=== PATIENT | female | born 1965 | race African-American/Black ===

== ENCOUNTER 2018-08-13 09:09 | Day surgery (SDC) | payer BC ==
[2018-08-10 12:34] VITALS: BMI 51.7
[2018-08-13] MEDS ORDERED: PROPOFOL 200 MG/20 ML VIAL ONE (13:59)
--- NOTE | 2018-08-13 14:29 | OP ---
DATE OF PROCEDURE: 08/13/2018 PROCEDURE PERFORMED: Colonoscopy. PREPROCEDURE DIAGNOSIS: Prior history of colon polyps. POSTPROCEDURE DIAGNOSES: 1. Melanosis coli. 2. No polyps seen. RECOMMENDATION: Repeat colonoscopy in 5 years. ANESTHESIA: TIVA. DESCRIPTION OF PROCEDURE: The patient was informed of the risks, benefits, and possible complication of endoscopy including perforation, bleeding risk, reaction to medication and aspiration, and informed consent was obtained. The patient was brought to the Endoscopy Suite, where she was sedated in a gradual fashion. Once she was comfortable, rectal exam was performed. The endoscope was then advanced through the anal canal through the colon to the cecum, which was identified by ileocecal valve and appendiceal orifice. The scope was then slowly removed. Good visualization of mucosa. There was no masses, lesions, AV malformations, or polyps seen. Retroflexed views revealed small internal hemorrhoids. The scope was removed. The patient tolerated the procedure well. Job ID: [id number]
== END 2018-08-13 13:30 | disposition home or self-care (01) ==
LOC: SDC 09:09
PROVIDERS: ATTEND Internal Medicine Gastroenterology
PROC: 0DJD8ZZ Inspection of Lower Intestinal Tract, Via Natural or Artificial Opening Endoscopic (ICD-10-PCS; principal; 2018-08-13)
DX: Z12.11 Encounter for screening for malignant neoplasm of colon (principal); I10 Essential (primary) hypertension; K21.9 Gastro-esophageal reflux disease without esophagitis; M19.90 Unspecified osteoarthritis, unspecified site; Z98.51 Tubal ligation status; Z80.0 Family history of malignant neoplasm of digestive organs; Z86.010 Personal history of colon polyps; Z79.899 Other long term (current) drug therapy; Z98.890 Other specified postprocedural states
CPT/HCPCS: J2704

== ENCOUNTER 2019-03-06 21:44 | Emergency (ER) | payer BC ==
--- NOTE | 2019-03-06 23:25 | RAD ---
Chest AP view INDICATION: Heart fluttering with dizziness and shortness of breath COMPARISON: January 06, 2015 FINDINGS: Lungs:The lungs are clear Cardiac silhouette:Stable mild cardiomegaly Pulmonary vasculature:Normal Pleural spaces:No pleural effusion or pneumothorax is demonstrated. Upper abdomen:No abnormality seen. Osseous structures: No acute osseous abnormality. Additional findings:None. IMPRESSION: No acute cardiopulmonary abnormality.
[2019-03-06 23:57] LABS: #Basophils 0.1 thou/uL (0.0-0.2); #Eosinphils 0.5 thou/uL (0.0-0.7); #Lymphocytes 1.7 thou/uL (1.20-3.40); #Monocytes 0.7 thou/uL (0.11-0.59); #Neutrophils 6.2 thou/uL (1.40-6.50); %Basophils 0.9 % (0.0-1.0); %Eosinophils 5.2 % (0.0-10.0); %Lymphocytes 18.8 % (21.0-51.0); %Monocytes 7.1 % (0.0-10.0); Hemoglobin 12.1 g/dL (12.0-16.0); Mean Corpuscular HGB CONC 32.4 g/dL (32.0-36.0); Mean Corpuscular Hemoglobin 29.4 pg (27.0-31.0); Mean Corpuscular Volume 90.6 fL (78.0-98.0); Mean Platelet Volume 6.9 fL (7.4-10.4); Platelet Count 346 thou/uL (130-400); RBC Distribution Width 12.1 % (11.5-14.5); Red Blood Cell (RBC) Count 4.13 mill/uL (4.20-5.40); White Blood Cell (WBC) Count 9.1 thou/uL (4.8-10.8)
[2019-03-07 00:17] LABS: ALT (SGPT) 14 U/L (8-55); AST (SGOT) 13 U/L (5-34); Albumin 3.7 g/dL (3.5-5.0); Alkaline Phosphatase 97 U/L (40-150); Anion Gap 15 mmol/L (10-20); BUN (Urea Nitrogen) 17 mg/dL (9.8-20.1); Bilirubin, Total 0.3 mg/dL (0.2-1.2); CK (CPK) 62 U/L (29-168); Calc. Creatinine Clearance 0 mL/min (70-130); Calcium 9.3 mg/dL (7.8-10.44); Carbon Dioxide 22 mmol/L (22-29); Chloride 107 mmol/L (98-107); Estimated GFR-MDRD Greater than 90; Globulin 3.3 g/dL (2.4-3.5); Glucose 102 mg/dL (70-105); Lipase 31 U/L (8-78); Potassium 4.1 mmol/L (3.5-5.1); Sodium 140 mmol/L (136-145)
[2019-03-07] MEDS ORDERED: Acetaminophen 500 MG TAB ONE (02:20)
--- NOTE | 2019-03-07 07:54 | ULT ---
DOPPLER VENOUS ULTRASOUND OF THE LEFT LOWER EXTREMITY: INDICATION: Left lower extremity pain and edema. TECHNIQUE: Garcia scale, color Doppler, and vascular duplex with spectral analysis was performed of the deep venou s structures of both lower extremities. The common femoral vein, superficial femoral vein, popliteal vein, posterior tibial vein, proximal greater saphenous, and proximal profunda veins were assessed bi laterally. FINDINGS: There is normal compression, flow, and augmentation seen within the deep venous structures of the lef t lower extremity. There subcutaneous edema seen along the lateral aspect of the left ankle. IMPRESSION: 1. No evidence of deep vein thrombosis in the left lower extremity 2. Soft tissue swelling along the lateral aspect of the left ankle. POS: BH
--- NOTE | 2019-03-09 14:32 | EKG ---
Test Reason : Blood Pressure : / mmHG Vent. Rate : 066 BPM Atrial Rate : 066 BPM P-R Int : 156 ms QRS Dur : 090 ms QT Int : 392 ms P-R-T Axes : 016 -11 -06 degrees QTc Int : 410 ms Normal sinus rhythm Normal ECG Confirmed by GALLO ROA ([id number]), editorial assistant BEVERLY ELY ([id number]) on 03/09/2019 2:32:39 PM Referred By: Confirmed By:GALLO ROA
== END 2019-03-07 02:37 | disposition home or self-care (01) ==
LOC: ERS 21:44
DX: M79.605 Pain in left leg (principal); R00.2 Palpitations; R51 Headache; I10 Essential (primary) hypertension; J45.909 Unspecified asthma, uncomplicated; K21.9 Gastro-esophageal reflux disease without esophagitis; Z79.899 Other long term (current) drug therapy
CPT/HCPCS: 36415; 71045; 80053; 82550; 83690; 83880; 84484; 85025; 93005

== ENCOUNTER 2020-10-21 14:54 | Outpatient (CLI) | payer BC | END 2020-10-21 14:55 | disposition home or self-care (01) | LOC: DTY/OP 14:54 | PROVIDERS: ATTEND Surgery | DX: I10 Essential (primary) hypertension (principal) | CPT/HCPCS: 97802 ==

== ENCOUNTER 2021-01-06 11:15 | Inpatient (IN) | payer BC ==
[2021-01-11] MEDS ORDERED: cefOXitin Sodium/Dextrose 2 GM/50 ML BAG ONE (07:30)
[2021-01-11] MEDS ORDERED: Scopolamine 1.5 mg/72 hour Patch ONE (07:30)
[2021-01-11] MEDS ORDERED: Fentanyl 250 MCG/5 ML VIAL ONE (11:55)
[2021-01-11] MEDS ORDERED: Dextrose 5% in Water 1,000 ML IV PRN (12:12)
[2021-01-11] MEDS ORDERED: Hydrocodone-Acetamin 15 ML UDCUP PO PRN (12:12)
[2021-01-11] MEDS ORDERED: Morphine 2 MG/ML VIAL SLOW IVP PRN (12:12)
[2021-01-11] MEDS ORDERED: Dextrose 50% Abboject 50 ML SYRINGE SLOW IVP PRN (12:12)
[2021-01-11] MEDS ORDERED: diphenhydrAMINE 50 MG/ML VIAL IVP PRN (12:12)
[2021-01-11] MEDS ORDERED: hydrALAZINE 20 MG/ML VIAL SLOW IVP PRN (12:12)
[2021-01-11] MEDS ORDERED: Promethazine HCl 25 MG/ML VIAL IM PRN ×3 (12:12→17:15)
[2021-01-11] MEDS ORDERED: Ondansetron PF 4 MG/2 ML Vial IVP PRN (12:12)
[2021-01-11] MEDS ORDERED: ALBUTEROL SULFATE 90 MCG PO PRN (12:14)
[2021-01-11] MEDS ORDERED: Lidocaine 1% w/Epinephrine 1:100K 20 ML VIAL ONE (12:16)
[2021-01-11] MEDS ORDERED: Bupivacaine 0.25% HCL 30 ML VIAL ONE (12:16)
[2021-01-11] MEDS ORDERED: PROPOFOL 200 MG/20 ML VIAL ONE (12:17)
[2021-01-11] MEDS ORDERED: Rocuronium Bromide 10 MG/ML (10ML VIAL) ONE (12:17)
[2021-01-11] MEDS ORDERED: Ketorolac Tromethamine 30 MG/ML VIAL ONE (12:17)
[2021-01-11] MEDS ORDERED: PHENYLEPHRINE-NS 100 MCG/ML 10 ML SYRINGE ONE (12:17)
[2021-01-11] MEDS ORDERED: Lidocaine 1% PF 5 ML VIAL ONE (12:17)
[2021-01-11] MEDS ORDERED: Dexamethasone 20 MG/5 ML VIAL ONE (12:17)
[2021-01-11] MEDS ORDERED: Ondansetron PF 4 MG/2 ML Vial ONE (12:17)
[2021-01-11] MEDS ORDERED: Promethazine HCl 25 MG/ML VIAL ONE (14:30)
[2021-01-11] MEDS ORDERED: Fentanyl 100 MCG/2 ML VIAL ONE ×3 (14:41→16:59)
[2021-01-11] MEDS ORDERED: Promethazine HCl 25 MG/ML VIAL IVPB PRN (14:46)
[2021-01-11] MEDS ORDERED: Ondansetron HCl/PF 4 MG/2 ML Vial IVP PRN (14:46)
[2021-01-11] MEDS ORDERED: Meperidine HCl/PF 25 MG/ML VIAL SLOW IVP PRN (14:46)
[2021-01-11 17:11] LABS: Troponin I Less than 0.010 ng/mL (< 0.028)
[2021-01-11] MEDS ORDERED: diphenhydrAMINE 50 MG/ML VIAL IM/IV PRN (17:15)
[2021-01-11] MEDS ORDERED: diphenhydrAMINE 25 MG CAP PO PRN (17:15)
[2021-01-11] MEDS ORDERED: Zolpidem Tartrate 5 MG TAB PO PRN (17:15)
[2021-01-11] MEDS ORDERED: Naloxone HCl 0.4 mg/ml Vial IV PRN (17:15)
[2021-01-11] MEDS ORDERED: HYDROmorphone 10 MG in Sodium Chloride 0.9% 95 ML IVPB PRN (17:15)
[2021-01-11 18:53] VITALS: BMI 55.9
[2021-01-11] MEDS: Ondansetron PF 4 MG/2 ML Vial IVP PRN (19:45)
[2021-01-11] MEDS: Ketorolac Tromethamine 30 MG/ML VIAL IVP SCH (19:45)
[2021-01-11] MEDS: 1/2 NS w/KCL 20 mEq 1,000 ML IV SCH ×2 (19:45→23:28)
[2021-01-12] MEDS: Ketorolac Tromethamine 30 MG/ML VIAL IVP SCH ×3 (00:54→13:06)
[2021-01-12] MEDS: Ondansetron PF 4 MG/2 ML Vial IVP PRN (02:53)
[2021-01-12] MEDS: 1/2 NS w/KCL 20 mEq 1,000 ML IV SCH ×2 (04:45→13:06)
[2021-01-12 05:57] LABS: #Lymphocytes 1.2 thou/uL (1.20-3.40); #Neutrophils 13.1 thou/uL (1.40-6.50); %Basophils 0.1 % (0.0-1.0); %Eosinophils 0.1 % (0.0-10.0); %Lymphocytes 7.9 % (21.0-51.0); %Monocytes 6.4 % (0.0-10.0); %Neutrophils 85.6 % (42.0-75.0); Hemoglobin 11.8 g/dL (12.0-16.0); Mean Corpuscular HGB CONC 32.6 g/dL (32.0-36.0); Mean Corpuscular Hemoglobin 29.5 pg (27.0-31.0); Mean Corpuscular Volume 90.3 fL (78.0-98.0); Mean Platelet Volume 7.4 fL (7.4-10.4); Platelet Count 335 thou/uL (130-400); RBC Distribution Width 12.8 % (11.5-14.5); Red Blood Cell (RBC) Count 3.99 mill/uL (4.20-5.40); White Blood Cell (WBC) Count 15.3 thou/uL (4.8-10.8)
[2021-01-12 06:09] LABS: Anion Gap 17 mmol/L (10-20); BUN (Urea Nitrogen) 24 mg/dL (9.8-20.1); Calc. Creatinine Clearance 242 mL/min (70-130); Calcium 8.8 mg/dL (7.8-10.44); Carbon Dioxide 17 mmol/L (22-29); Chloride 105 mmol/L (98-107); Glucose 95 mg/dL (70-105); Sodium 134 mmol/L (136-145)
[2021-01-12] MEDS ORDERED: Atenolol 50 MG TAB PO SCH (09:00)
[2021-01-12] MEDS ORDERED: Pantoprazole 40 MG VIAL IVP SCH (09:00)
[2021-01-12] MEDS ORDERED: Enoxaparin Sodium 40 MG/0.4 ML SYRINGE SC SCH (09:00)
[2021-01-12] MEDS ORDERED: HYDROcodone/Acetaminophen 7.5/325 mg Tablet PO PRN ×2 (10:07)
[2021-01-12] MEDS ORDERED: Hydrocodone-Acetamin 15 ML UDCUP PO PRN ×2 (10:15)
[2021-01-12 16:04] VITALS: BP 102/68; TEMP 97.5
== END 2021-01-12 16:30 | disposition home or self-care (01) | DRG 620 ==
LOC: SURG A 01-11 07:04 → EDSTATUS 01-11 11:15 → SURG A 01-11 18:17
PROVIDERS: ADMIT Surgery; ATTEND Surgery
PROC: 0DB64Z3 Excision of Stomach, Percutaneous Endoscopic Approach, Vertical (ICD-10-PCS; principal; 2021-01-11)
PROC: 0BQT4ZZ Repair Diaphragm, Percutaneous Endoscopic Approach (ICD-10-PCS; 2021-01-11)
PROC: 8E0W4CZ Robotic Assisted Procedure of Trunk Region, Percutaneous Endoscopic Approach (ICD-10-PCS; 2021-01-11)
DX: E88.81 Metabolic syndrome and other insulin resistance (principal); A04.8 Other specified bacterial intestinal infections; Z68.43 Body mass index [BMI] 50.0-59.9, adult; E66.01 Morbid (severe) obesity due to excess calories; M19.90 Unspecified osteoarthritis, unspecified site; I10 Essential (primary) hypertension; K21.9 Gastro-esophageal reflux disease without esophagitis; G47.33 Obstructive sleep apnea (adult) (pediatric); J45.909 Unspecified asthma, uncomplicated; E78.5 Hyperlipidemia, unspecified; K44.9 Diaphragmatic hernia without obstruction or gangrene; Z79.899 Other long term (current) drug therapy; Z98.51 Tubal ligation status; Z98.890 Other specified postprocedural states
CPT/HCPCS: 36415; 80048; 84484; 85025; 88307; 88312; 93005; 93010; 94760; C9113; J0694; J1100; J1650; J1885; J2405; J2550; J2704; J3010; J3480; S0020

== ENCOUNTER 2021-09-03 12:54 | Outpatient (CLI) | payer MEDICARE ==
[~2021-09-03 12:54] MED LIST: Iopamidol-370 76% 500 ML 1 ML ONE
== END 2021-09-03 12:55 | disposition home or self-care (01) ==
LOC: BICCT 12:54
PROVIDERS: ATTEND Internal Medicine
DX: R10.31 Right lower quadrant pain (principal)
CPT/HCPCS: 74177; Q9967

== ENCOUNTER 2021-12-15 08:43 | Outpatient (CLI) | payer MEDICARE | END 2021-12-15 08:44 | disposition home or self-care (01) | LOC: BICMAMMO 08:43 | PROVIDERS: ATTEND Internal Medicine | DX: Z12.31 Encounter for screening mammogram for malignant neoplasm of breast (principal); Z80.3 Family history of malignant neoplasm of breast | CPT/HCPCS: 77063; 77067 ==

== ENCOUNTER 2023-05-18 09:44 | Outpatient (CLI) | payer MEDICARE | END 2023-05-18 09:45 | disposition home or self-care (01) | LOC: BICMAMMO 09:44 | PROVIDERS: ATTEND Internal Medicine | DX: Z12.31 Encounter for screening mammogram for malignant neoplasm of breast (principal); Z80.3 Family history of malignant neoplasm of breast; Z91.89 Other specified personal risk factors, not elsewhere classified | CPT/HCPCS: 77063; 77067 ==

== ENCOUNTER 2023-06-29 06:03 | Day surgery (SDC) | payer MEDICARE ==
[2023-06-27 15:27] VITALS: BMI 45.3
[2023-06-29] MEDS ORDERED: PROPOFOL 20 ML ONE ×2 (08:30→08:48)
[2023-06-29] MEDS ORDERED: Lidocaine 1% PF 5 ML VIAL ONE (08:31)
== END 2023-06-29 10:10 | disposition home or self-care (01) ==
LOC: SDC 06:03
PROVIDERS: ATTEND Internal Medicine Gastroenterology
PROC: 0DJD8ZZ Inspection of Lower Intestinal Tract, Via Natural or Artificial Opening Endoscopic (ICD-10-PCS; principal; 2023-06-29)
DX: Z12.11 Encounter for screening for malignant neoplasm of colon (principal); K64.8 Other hemorrhoids; K21.9 Gastro-esophageal reflux disease without esophagitis; I10 Essential (primary) hypertension; Z86.010 Personal history of colon polyps; Z80.0 Family history of malignant neoplasm of digestive organs; Z98.84 Bariatric surgery status; Z79.899 Other long term (current) drug therapy
CPT/HCPCS: J2704

== ENCOUNTER 2023-08-23 07:29 | Emergency (ER) | payer MEDICARE ==
[2023-08-23 09:13] LABS: SARS-CoV-2 NAA Rapid Test DETECTED (NotDetected)
== END 2023-08-23 10:11 | disposition home or self-care (01) ==
LOC: ERS 07:29
DX: U07.1 COVID-19 (principal); B34.9 Viral infection, unspecified; I10 Essential (primary) hypertension; K21.9 Gastro-esophageal reflux disease without esophagitis; J45.909 Unspecified asthma, uncomplicated; Z79.899 Other long term (current) drug therapy
CPT/HCPCS: 0240U; 87081; 87430; 99283